=== PATIENT | male | born 1995 | race African-American/Black ===

== ENCOUNTER 2018-12-06 19:43 | Emergency (ER) | payer SELFPAY ==
[~2018-12-06] VITALS: Ht 180.3 cm; Wt 72.6 kg
[2018-12-06 19:50] VITALS: BP 144/100
[2018-12-06] MEDS ORDERED: ACETAMINOPHEN 325 MG TABLET PO ONE (20:00)
[2018-12-06] MEDS ORDERED: ACETAMINOPHEN ES 500 MG TABLET ONE (20:09)
== END 2018-12-06 21:24 | disposition home or self-care (01) ==
LOC: ER 19:52
DX: S52.124A Nondisplaced fracture of head of right radius, initial encounter for closed fracture (principal); S52.134A Nondisplaced fracture of neck of right radius, initial encounter for closed fracture; V23.4XXA Motorcycle driver injured in collision with car, pick-up truck or van in traffic accident, initial encounter; Y93.55 Activity, bike riding; Y92.413 State road as the place of occurrence of the external cause; Y99.8 Other external cause status
CPT/HCPCS: 73080-TC; 73090-TC